=== PATIENT | female | born 1995 | race Hispanic/Latino ===

== ENCOUNTER 2021-06-02 08:46 | Emergency (ER) | payer OTHER ==
[~2021-06-02] VITALS: Ht 165.1 cm; Wt 75.0 kg
[2021-06-02] MEDS ORDERED: valACYclovir HCL 500 MG TAB PO ONE (09:35)
[2021-06-02] MEDS ORDERED: VALA1TAB5 PO ×2 (09:36→11:17)
[2021-06-02 10:13] VITALS: BP 144/89
[2021-06-02 12:22] LABS: GC DNA AMPLIFICATION NEGATIVE (NEGATIVE)
== END 2021-06-02 10:14 | disposition home or self-care (01) ==
LOC: M ED 08:46
DX: A60.04 Herpesviral vulvovaginitis (principal); A60.1 Herpesviral infection of perianal skin and rectum

== ENCOUNTER 2021-06-18 14:38 | Emergency (ER) | payer OTHER ==
[~2021-06-18] VITALS: Ht 165.1 cm; Wt 85.3 kg
[~2021-06-18 14:38] MED LIST: VALA1TAB5 PO
[2021-06-18] MEDS ORDERED: VALT1TAB PO (16:03)
[2021-06-18 16:15] VITALS: BP 117/69
[2021-06-18 18:53] LABS: GC DNA AMPLIFICATION NEGATIVE (NEGATIVE)
== END 2021-06-18 16:23 | disposition home or self-care (01) ==
LOC: M ED 14:38
DX: A60.04 Herpesviral vulvovaginitis (principal); L29.2 Pruritus vulvae

== ENCOUNTER → 2021-06-30 | Outpatient (CLI) | payer OTHER ==
[~2021-06-30] MED LIST changes: +VALT1TAB PO; +VALT500T PO
[2021-06-30 16:41] LABS: GLUCOSE,RANDOM 93 MG/DL (LESS THAN 200)
[2021-06-30 18:48] LABS: FOLLICLE STIMULATING HORMONE 5.2 mIU/mL; LUTEINIZING HORMONE 9.4 mIU/mL; PROLACTIN 11.4 NG/ML
[2021-06-30 18:53] LABS: HCG, SERUM QUALITATIVE NEGATIVE (NEGATIVE)
== END ==
LOC: M WUC 12:34
PROVIDERS: ATTEND Obstetrics & Gynecology Obstetrics
DX: N92.6 Irregular menstruation, unspecified (principal); Z71.9 Counseling, unspecified

== ENCOUNTER 2021-07-01 17:48 | Emergency (ER) | payer OTHER ==
[~2021-07-01] VITALS: Ht 167.6 cm; Wt 84.8 kg
[~2021-07-01 17:48] MED LIST changes: -VALT500T PO
[2021-07-01] MEDS ORDERED: valACYclovir HCL 500 MG TAB PO ONE (18:55)
[2021-07-01] MEDS ORDERED: VALT1TAB PO (18:57)
[2021-07-01] MEDS ORDERED: VALT500T PO (18:57)
[2021-07-01 19:10] VITALS: BP 132/84
== END 2021-07-01 19:16 | disposition home or self-care (01) ==
LOC: M ED 17:48
DX: B00.82 Herpes simplex myelitis (principal)

== ENCOUNTER 2022-10-21 01:31 | Emergency (ER) | payer OTHER ==
[~2022-10-21] VITALS: Ht 162.6 cm; Wt 89.1 kg
[2022-10-21 01:31] VITALS: BP 139/95; TEMP 97.4; O2SAT 97
[~2022-10-21 01:31] MED LIST changes: +VALT500T PO
== END 2022-10-21 05:58 | disposition left against medical advice (07) ==
LOC: M ED 01:31
DX: Z53.21 Procedure and treatment not carried out due to patient leaving prior to being seen by health care provider (principal)

== ENCOUNTER 2022-12-22 22:11 | Emergency (ER) | payer OTHER ==
[~2022-12-22] VITALS: Ht 167.6 cm; Wt 98.3 kg
[2022-12-22 22:54] LABS: HEMATOCRIT 35.8 % (36.0-47.0); MEAN CORPUSCULAR HEMOGLOBIN 22.7 pg (27.0-33.0); MEAN CORPUSCULAR HGB CONC 30.7 g/dl (32.0-36.5); MEAN CORPUSCULAR VOLUME 73.8 fl (80.0-96.0); PLATELET COUNT, AUTOMATED 297 10^3/uL (150-450); RED BLOOD COUNT 4.85 10^6/uL (4.00-5.40); WHITE BLOOD COUNT 13.8 10^3/uL (4.0-10.0)
[2022-12-22 23:16] LABS: BLOOD UREA NITROGEN 7 MG/DL (9-23); CALCIUM LEVEL 8.5 MG/DL (8.5-10.1); CARBON DIOXIDE LEVEL 26 MMOL/L (20-31); CHLORIDE LEVEL 107 MMOL/L (98-107); CREATININE FOR GFR 0.63 MG/DL (0.55-1.30); GLOMERULAR FILTRATION RATE > 60.0 (>60); GLUCOSE, FASTING 89 MG/DL (60-100); POTASSIUM SERUM 4.2 MMOL/L (3.5-5.1); SODIUM LEVEL 141 MMOL/L (136-145)
[2022-12-22 23:21] LABS: INR 1.05; PROTHROMBIN TIME 13.4 SECONDS (12.5-14.5)
[2022-12-22 23:22] LABS: PARTIAL THROMBOPLASTIN TIME 27.9 SECONDS (24.8-34.2)
[2022-12-22 23:25] LABS: HCG, SERUM QUALITATIVE NEGATIVE (NEGATIVE)
[2022-12-23] MEDS ORDERED: PROV10TA PO (02:24)
[2022-12-23] MEDS ORDERED: medroxyPROGESTERone 5MG TABLET PO ONE (02:25)
[2022-12-23 03:25] VITALS: BP 118/58; TEMP 98.4; O2SAT 97
== END 2022-12-23 03:26 | disposition home or self-care (01) ==
LOC: M ED 22:11
DX: N93.8 Other specified abnormal uterine and vaginal bleeding (principal); Z79.899 Other long term (current) drug therapy

== ENCOUNTER 2023-03-13 06:22 | Emergency (ER) | payer OTHER ==
[~2023-03-13] VITALS: Ht 165.1 cm; Wt 93.7 kg
[~2023-03-13 06:22] MED LIST changes: +PROV10TA PO
[2023-03-13 08:46] VITALS: BP 115/57; TEMP 96.7; O2SAT 98
== END 2023-03-13 09:36 | disposition home or self-care (01) ==
LOC: M ED 06:22
DX: R05.9 Cough, unspecified (principal); U09.9 Post COVID-19 condition, unspecified; J06.9 Acute upper respiratory infection, unspecified; Z79.899 Other long term (current) drug therapy